=== PATIENT | female | born 1965 | race Caucasian/White ===

== ENCOUNTER → 2017-10-30 11:19 | Outpatient (CLI) | payer BC, SELFPAY ==
[2017-10-30 13:03] LABS: Absolute Lymphocyte Count 1.72 X10^3/ul (0.83-4.51); Absolute Neutrophil Count 4.9 X10^3/uL (2.0-7.7); Basophil# 0.03 X10^3/uL; Basophil% 0.4 % (0-1); Eosinophil# 0.04 X10^3/uL; Eosinophils% 0.6 % (0-5); Hematocrit 36.6 % (37-47); Hemoglobin 12.3 g/dl (12.0-15.0); Lymphocyte # 1.72 X10^3/ul (4.0); Lymphocyte % 24.3 % (19-41); Mean Corp Hgb Conc 33.6 g/gl (32-36); Mean Corpuscular Hgb 32.4 pg (27.0-32.0); Mean Corpuscular Volume 96.3 fL (81-99); Mean Platelet Vol. 10.2 fl (6.2-12.0); Monocyte% 5.6 % (0-10); Neutrophil # 4.86 X10^3/uL (2.7-7.7); Neutrophil % 68.5 % (47-70); Platelet Count 311 K/mm3 (150-450); RBC Distribution Width CV 13.3 % (11.6-14.6); RBC Distribution Width SD 45.2 fl (35.1-43.9); White Blood Count 7.1 K/mm3 (4.4-11.0)
[2017-10-30 13:12] LABS: POSITIVE COUNT NO; POSITIVE DIFFERENTIAL NO; POSITIVE MORPHOLOGY NO
[2017-10-30 13:32] LABS: Thyroid Stim Hormone (TSH) 1.07 uIU/mL (0.358-3.74)
== END ==
PROVIDERS: Family Provider Family Medicine; PCP Family Medicine; Visit Provider Nurse Practitioner Women's Health
DX: N92.0 Excessive and frequent menstruation with regular cycle (principal)
CPT/HCPCS: 36415; 84443; 85025

== ENCOUNTER → 2017-10-31 14:00 | Outpatient (CLI) | payer BC, SELFPAY ==
--- NOTE | 2017-10-31 14:01 | US_ITS ---
STUDY: ULTRASOUND OF THE FEMALE PELVIS - COMPLETE REASON FOR EXAM: Female, 52 years old. Menorrhagia LMP: 10/19/2017. TECHNIQUE: Transabdominal and Transvaginal TECHNICAL QUALITY: Adequate. COMPARISON: None. FINDINGS: The uterus is anteverted and is in a midline position. The uterus measures 10.6 x 5.3 x 5 cm. There are multiple prominent cysts in the cervix consistent with nabothian cysts. The endometrium is borderline in thickness measures 12 mm in thickness, and is hyperechoic. There is no demonstrated endometrial mass. There is no demonstrated myometrial mass. I.U.D. - The patient does not have an I.U.D. The right ovary is visualized. The right ovary measures 2.3 x 2.1 x 2 cm. There is a small cysts/prominent follicle in the left ovary measuring about 1.6 cm. There is no visualized right adnexal mass or complex lesion. There is normal arterial and normal venous vascularity. The left ovary is visualized. The left ovary measures 5.4 x 4.8 x 3.4 cm. There is a cyst in the left ovary measuring about 2.2 cm. There is another cyst adjacent measuring about 1.7 cm. There is no visualized left adnexal mass or complex lesion. There is normal arterial and normal venous vascularity. There is no fluid in the cul-de-sac. Polycystic ovary disease: No. US/Pelvic (Non ) IMPRESSION: Multiple nabothian cysts in the cervix. Left ovarian cysts. Electronically Signed: Kan Zhu MD at 9:14 EST Tel , Service support ,
--- NOTE | 2017-10-31 14:01 | US_ITS ---
STUDY: ULTRASOUND OF THE FEMALE PELVIS - COMPLETE REASON FOR EXAM: Female, 52 years old. Menorrhagia LMP: 10/19/2017. TECHNIQUE: Transabdominal and Transvaginal TECHNICAL QUALITY: Adequate. COMPARISON: None. FINDINGS: The uterus is anteverted and is in a midline position. The uterus measures 10.6 x 5.3 x 5 cm. There are multiple prominent cysts in the cervix consistent with nabothian cysts. The endometrium is borderline in thickness measures 12 mm in thickness, and is hyperechoic. There is no demonstrated endometrial mass. There is no demonstrated myometrial mass. I.U.D. - The patient does not have an I.U.D. The right ovary is visualized. The right ovary measures 2.3 x 2.1 x 2 cm. There is a small cysts/prominent follicle in the left ovary measuring about 1.6 cm. There is no visualized right adnexal mass or complex lesion. There is normal arterial and normal venous vascularity. The left ovary is visualized. The left ovary measures 5.4 x 4.8 x 3.4 cm. There is a cyst in the left ovary measuring about 2.2 cm. There is another cyst adjacent measuring about 1.7 cm. There is no visualized left adnexal mass or complex lesion. There is normal arterial and normal venous vascularity. There is no fluid in the cul-de-sac. Polycystic ovary disease: No. US/Transvaginal Non- IMPRESSION: Multiple nabothian cysts in the cervix. Left ovarian cysts. Electronically Signed: Kan Zhu MD at 9:14 EST Tel , Service support ,
== END ==
PROVIDERS: Family Provider Family Medicine; PCP Family Medicine; Visit Provider Nurse Practitioner Women's Health
DX: N92.0 Excessive and frequent menstruation with regular cycle (principal)
CPT/HCPCS: 76830; 76856; 93976

== ENCOUNTER → 2017-11-07 09:09 | Outpatient (CLI) | payer BC, SELFPAY ==
--- NOTE | 2017-11-06 | EMB_PTH ---
PATIENT: SHAVONNE WILLIAM LOC: [facility] U#:[id number] AGE/SX: 59/F ROOM: RE11/07/[address]: MONSTER Guzman : 1965 BED: DIS: SPEC #: [id number] RECD: 11/06/17 19:07 STATUS: MINOR SAADIA #: [id number] ROMEO: 11/06/17 00:[address]: Violeta Ryan NP DEPT: SURGICAL PATHOLOGY RECD BY: Nestor Elias ENTERED: 11/07/17 10:08 SP TYPE: ENDOM BX/C DONALD DR: Dr. Naveed Garcia MD Tissues: Endometrium, NOS Procedures: Surgery Specimen Level IV HEADER OPERATION: Endometrial biopsy PRE-OP DIAGNOSIS: Abnormal uterine bleeding TISSUE SUBMITTED: Endometrial biopsy MICROSCOPIC DIAGNOSIS Endometrium, biopsy: Mildly disordered proliferative endometrium. Mild chronic endometritis. AM:christopher 11/10/17 COMMENT Case has been reviewed in consultation with Dr. Montgomery who concurs with the above diagnosis. IDC:SJ MICROSCOPIC DESCRIPTION Slides are reviewed. GROSS DESCRIPTION Received is one container labeled with the patient's name and not further designated. The specimen consists of an elongated fragment of hemorrhagic soft tissue that measures 2.5 x 0.2 x 0.2 cm. The specimen is totally submitted in one cassette. / EDILIA:christopher 11/07/17 TC:3 CPT: 55206
== END ==
PROVIDERS: Family Provider Family Medicine; PCP Family Medicine; Visit Provider Nurse Practitioner Women's Health
DX: N93.9 Abnormal uterine and vaginal bleeding, unspecified (principal)
CPT/HCPCS: 88305

== ENCOUNTER → 2018-10-26 15:21 | Outpatient (CLI) | payer BC, SELFPAY ==
[2018-10-26 11:14] VITALS: BMI 22.6
[2018-10-30 11:56] LABS: HPV APTIMA, High Risk Negative (Negative)
== END ==
PROVIDERS: Family Provider Family Medicine; PCP Family Medicine; Referring Provider Obstetrics & Gynecology; Visit Provider Obstetrics & Gynecology
DX: Z12.4 Encounter for screening for malignant neoplasm of cervix (principal)
CPT/HCPCS: 87624; 88175; G0145

== ENCOUNTER 2018-12-21 07:04 | Day surgery (SDC) | payer BC, SELFPAY ==
[2018-10-26 11:14] VITALS: BMI 22.6
[2018-12-21 07:16] VITALS: BP 113/86; PULSE 82; RESP 14; TEMP 36.8; O2SAT 100; BMI 22.0
--- NOTE | 2018-12-21 07:31 | H&P.OPEN ---
History of Present Illness Date of Admission: 12/21/18 The patient is a 53 year old F presents for screening colonoscopy. denies previous colonoscopy or FH of colon cancer, denies abd pain/n/v/GERD. +BM daily no blood Past Medical/Surgical History - Planned Operation Planned Operative Procedure/s: COLONOSCOPY Date of Operative Procedure: 12/21/18 Permit Signed: No S.O.S: No Is This Patient Having a Total Joint: No - Previous Hospitalizations/Surgeries HX Hospitalizations: No HX of Surgeries: X2 TUBAL LIGATION 2004. D AND C. LASIK EYE SURGERY Any Problems With Anesthesia: No You/Your Family Experience Fever (Hyperthermia) With Anes: No Cholinesterase deficiency: No - Cardiovascular Hx Chest Pain within Last 2 months: No Hx of Irregular Heartbeat and/or Afib: No Hx Heart Attack: No Hx Congestive Heart Failure: No Hx Rheumatic Fever: No Hx Hypertension: No Hx Internal Defibrillator: No Hx Pacemaker: No Hx Cardiac Catheterization: No Hx Cardiac Surgery/Stents/Etc.: No Hx Stress Test: No HX Edema: No Hx Pain in Legs when Walking/Leg Cramps: No - Respiratory Chronic Cough: No HX of Shortness of Breath: No - DENIES Hoarseness: No Hx Chronic Obstructive Pulmonary Disease (COPD): No Hx Asthma: No Hx Emphysema: No Hx Sleep Apnea: No Hx Oxygen Use at Home: No Hx Respiratory Tract Infection/Cold (presently): No Do You Snore Loudly (louder than talking or can be heard): No Do You Often Feel Tired/ Fatigued/ Sleepy Dring Daytime?: No Has Anyone Observed You Stop Breathing During Sleep?: No Result (for STOP score): Negative Hx Smoking: No Smoking Status: Never smoker - Gastrointestinal Hx Gastroesophageal Reflux: No Hx Gastrointestinal Disorders: No Hx Gastrointestinal Bleed: No Hx Ulcer: No Hx Hiatal Hernia: No Difficulty Chewing/Swallowing: No Recent Onset of Swallowing Problems: No Special diet followed at home: No Hx Unplanned Weight Loss of 20#: No HX Unplanned Weight Gain of 20#: No - Neurological Hx Seizures: Yes - FEBRILE SEIZURE CHILD HX Syncope/Blackout Spells/Unconsciousness: No Hx CVA/Stroke: No Hx Transient Ischemic Attacks (TIA): No Hx Multiple Sclerosis: No - TESTED AND NEGATIVE Hx Parkinson's Disease: No Hx Head/Neck Injury: Yes - HERNIATED DISC/TREATED Hx Headaches: No Hx Back Injury/Pain: Yes - HERNIATED DISC/TREATED Recent Onset of Speech Difficulty: No Restless Legs: No Does patient have nerve stimulator: No Patient instructed to have device shut off: No Rep notified?: No - Blood Disorder Hx Leukemia: No Bleeding Tendencies: No Hx Deep Vein Thrombosis: No Hx High Cholesterol: No Blood Transmitted Disease: No Hx Hepatitis: No Hx Cirrhosis: No Hx Anemia: Yes - PER HX, NOT RECENT Hx Blood Disorders: No - Reproduction : No Is Patient Lactating: No Hx Hysterectomy: No Hx Tubal Ligation: Yes - 2004 Are You Post Menopause: No - Genitourinary Hx Renal Disease: No - Musculoskeletal Hx Arthritis: No Hx Rheumatoid Arthritis: No Hx Gout: No Recent Onset of an Orthopedic Problem: No - Endocrine Hx Diabetes: No Thyroid Disease: No Hx Steroid Therapy: No - Psycho/Social Hx Substance Use: No Hx Alcohol Use: Yes - 2 BEERS/MONTH Hx Anxiety: No Hx Depression: No Mental Illness: No Hx Dementia: No - Miscellaneous Hx Cancer: No Recent Exposure to Contagious Disease: No Active MRSA: No Hx of C-Diff: No Any Loose Teeth: No Allergies No Known Allergies Allergy (Verified 12/18/18 12:08) - Discharge Is Pt Admitted From a Penitentiary, or a Nursing Home: No Who Could Help: After D/C, Where Do you Plan to Go: Return Home - Physical Exam General: Alert, Oriented x3, Cooperative, No apparent distress HEENT: Atraumatic Lungs: Normal air movement Cardiovascular: Regular rate Abdomen: Soft, Non Tender - no pS, Non-Distended Extremities: No clubbing, No cyanosis, No edema Neurological: Cranial nerves II-XII grossly intact Psych/Mental Status: Normal Affect Vital Signs Temp Pulse Resp BP Pulse Ox 98.2 F 82 14 113/86 H 100 12/21/18 07:16 12/21/18 07:16 12/21/18 07:16 12/21/18 07:16 12/21/18 07:16 Oxygen Delivery Method Room Air Weight: 128 lb 8.472 oz Body Mass Index (BMI) 22.0 Assessment/Plan 53 y/o F for screening for colon cancer Surgery Risks - Colonoscopy I discussed with the patient the risks of the procedure: Yes Risks Include but are not Limited To: Risks include but are not limited to: Bleeding, perforation requiring further surgery, inability to complete colonoscopy requiring barium enema. Pt had no further questions.
[2018-12-21 08:19] VITALS: BP 113/86; BP 96/71; PULSE 66; RESP 16; TEMP 35.7; O2SAT 100
--- NOTE | 2018-12-21 08:21 | OP.ENDO_ITS ---
12/21/2018 Naveed Garcia [address] [place] [address] Re : Colonoscopy procedure for Jaimie Nayak Dear Dr. Garcia This procedure was performed on Friday, December 21, 2018. My impressions and recommendations are as follows: Impressions : - The entire examined colon is normal on direct and retroflexion views. - No specimens collected. Recommendations : - Discharge patient to home. - Continue present medications. - Repeat colonoscopy in 10 years for screening purposes. My findings are described in the full procedure note, which is enclosed. If I can be of further assistance, please feel free to contact me at Doctor phone number(s): , Work: . Sincerely, MD Brooklyn Coombs MD 12/21/2018 8:21:24 AM This report has been signed electronically.
[2018-12-21 08:24] VITALS: BP 113/86; BP 94/70; PULSE 68; RESP 16; O2SAT 100
[2018-12-21 08:29] VITALS: BP 113/86; BP 95/67; PULSE 63; RESP 16; O2SAT 100
[2018-12-21 08:34] VITALS: BP 113/86; BP 97/73; PULSE 63; RESP 16; TEMP 35.7; O2SAT 100
[2018-12-21 09:00] VITALS: BP 113/86
== END 2018-12-21 09:14 | disposition home or self-care (01) ==
LOC: EN 07:05 → AC 07:06
PROVIDERS: Family Provider Family Medicine; PCP Family Medicine; Referring Provider Surgery; Visit Provider Surgery
PROC: 0DJD8ZZ Inspection of Lower Intestinal Tract, Via Natural or Artificial Opening Endoscopic (ICD-10-PCS; CPT 45378; principal; 2018-12-21 07:55)
DX: Z12.11 Encounter for screening for malignant neoplasm of colon (principal)
CPT/HCPCS: 45378; J7120

== ENCOUNTER → 2019-01-13 | Outpatient (CLI) | payer BC, SELFPAY ==
[2018-10-26 11:14] VITALS: BMI 22.6
[2018-12-21 07:16] VITALS: BMI 22.0
--- NOTE | 2019-01-13 13:37 | BI_ITS ---
MAMMOGRAPHY - BILATERAL SCREENING REASON FOR EXAM: Female, 53 years old. Routine annual screening examination. PERTINENT HISTORY: Mother with breast cancer. TECHNIQUE: Digital bilateral breast melissa (3D mammographic acquisition) in the CC and MLO projections. 2-D mediolateral oblique (MLO) and craniocaudad (CC) views of both breasts were obtained. CAD: Full Field Digital Mammography with Computer Added Detection was performed. COMPARISON: Comparison is made with prior outside examination dated May 23, 2015. FINDINGS: Breast Composition: The breasts are extremely dense, which lowers the sensitivity of mammography. There are no dominant masses or suspicious calcifications. Once again, a tissue clip marker is seen in the deep upper lateral aspect of the left breast. This is unchanged. No other significant abnormalities are identified. There has been no significant change since the prior study. BI/SCREEN MAMM (CAD) W/MELISSA BILAT IMPRESSION: Stable bilateral screening mammogram. Yearly follow-up mammogram recommended. (A) ASSESSMENT CATEGORY: BIRADS Category 2: Benign. A letter regarding these results will be sent to the patient by the facility within 30 days. Approximately 10% of breast cancers are not detected by mammography. A normal mammogram should not delay biopsy of a clinically suspicious abnormality. [id number] Electronically Signed: Jesus Shankar, at 14:51 EDT , Service support ,
== END | disposition home or self-care (01) ==
LOC: OPBI 13:35
PROVIDERS: Family Provider Family Medicine; PCP Family Medicine; Referring Provider Obstetrics & Gynecology; Visit Provider Obstetrics & Gynecology
DX: Z12.31 Encounter for screening mammogram for malignant neoplasm of breast (principal)
CPT/HCPCS: 77063; 77067